=== PATIENT | male | born 1960 | race Caucasian/White ===

== ENCOUNTER → 2017-09-16 | Outpatient (CLI) | payer MEDICARE ==
[2012-04-08 21:13] VITALS: BP 139/72
[~2017-09-16] MED LIST: EFFEXOR75 MG PO; MULTIPLE VITAMI1 CAP PO; NORCO 325 MG-7.1 TA1 PO; PRINIVIL20 MG PO; ZANAFLEX4 M1 PO
== END ==
LOC: RAD 16:06
DX: R09.89 Other specified symptoms and signs involving the circulatory and respiratory systems (principal)